=== PATIENT | female | born 1945 | race Caucasian/White ===

== ENCOUNTER → 2018-12-15 | Outpatient (CLI) | payer OTHER ==
[~2018-12-15] MED LIST: ACET325 PO; ALBU90OI INH; ASCO500 PO; ASPI81EC PO; B Complex #11 EACH PO; Bactrim Ds Tab1 EACH PO; CEFP200 PO; CEPH500 PO; CHOL10002 PO; COMBIVENT INH; CVS DISPOSABLE399 ML PR; CYCL10 PO; DEXGUASY; DIAZ2 PO; DOCU100 PO; ELIQUIS5 MG PO; FERR325 PO; HYDGUAL120 PO; HYDR1TAB94 PO; LISI5 PO; MOTRIN; Metoprolol Tart50 MG PO; PANT40 PO; PRED10 PO; SULTRISS PO; TOCO1000 PO; VITA25000 PO; Vitamin B Comple1 EA PO
== END | disposition home or self-care (01) ==
LOC: EDSTATUS 12-13 14:10 → LAB FUT 12-13 14:10 → LAB 16:53 → LAB SHORT 16:53
DX: R11.2 Nausea with vomiting, unspecified (principal)
CPT/HCPCS: 87493

== ENCOUNTER → 2019-05-04 | Outpatient (CLI) | payer OTHER | END | disposition home or self-care (01) | LOC: LAB SHORT 12:46 → LAB UCHC 12:46 | DX: N39.0 Urinary tract infection, site not specified (principal) | CPT/HCPCS: 87086 ==

== ENCOUNTER → 2019-11-16 | Outpatient (CLI) | payer OTHER ==
[2019-11-20 15:08] LABS: HPV 16 Negative (Negative); HPV 18 Negative (Negative); HPV OTHER HR TYPES Negative (Negative)
== END ==
LOC: LAB 15:45 → LAB SHORT 15:45
PROVIDERS: Radiology Therapeutic Radiology
DX: C53.9 Malignant neoplasm of cervix uteri, unspecified (principal)
CPT/HCPCS: 87624; 88175

== ENCOUNTER → 2020-02-08 | Outpatient (CLI) | payer OTHER ==
[~2020-02-08] MED LIST changes: +FERRETTS325 M1 PO; +FLUO10 PO; +Hydrocodone-Ap1 EA23; +PROZAC
[2020-02-08 14:50] LABS: Source, Urine Clean Catch
[2020-02-08 15:59] LABS: Bilirubin, Urine Neg (Neg); Blood, Urine 5+ (Neg); Glucose Qualitative, Urine Neg (Neg); Ketones, Urine 1+ (Neg); Leukocyte Esterase, Urine 3+ (Neg); Nitrite, Urine Pos (Neg); Protein, Urine 4+ (Neg); Urobilinogen, Urine 1+ (Normal)
[2020-02-08 16:18] LABS: Appearance, Urine Cloudy (Clear); Color, Urine Amber (P-Yellow); Red Blood Cells, Urine TNTC /hpf (0-2); White Blood Cells, Urine 25-50 /hpf (0-5)
[2020-02-08 16:19] LABS: Bacteria Few /hpf; Squamous Epithelial Cells Rare /hpf (Few)
== END | disposition home or self-care (01) ==
LOC: OLS 14:48 → LAB SHORT 14:48
PROVIDERS: Nurse Practitioner
DX: N39.0 Urinary tract infection, site not specified (principal)
CPT/HCPCS: 81001; 87077; 87086; 87186

== ENCOUNTER 2020-02-13 07:28 | Day surgery (SDC) | payer OTHER ==
[~2020-02-13] VITALS: Ht 160 cm; Wt 84.2 kg
[~2020-02-13 07:28] MED LIST changes: -FERRETTS325 M1 PO; -FLUO10 PO
[2020-02-13] MEDS ORDERED: FLUO10 PO (07:55)
[2020-02-13] MEDS ORDERED: FERRETTS325 M1 PO (07:56)
--- NOTE | 2020-02-13 08:22 | NUR ---
History, Chart, Medications and Allergies reviewed before start of procedure. Pre-Op teaching done. Pt verbalizes understanding.
--- NOTE | 2020-02-13 08:54 | NUR ---
02/13/20 0854 Deandre Roy PATIENT DETERMINED TO BE ASA APPROPRIATE FOR PROPOFOL SEDATION PRIOR TO START OF PROCEDURE BY Bite Block PlacedDentures removed and placed in cupPatient to ENDO 1History, Chart, Medications and Allergies reviewed before start of procedure.MONITOR INTACT WITH CONTINUOUS PULSE OXIMETRY AND INTERMITTENT BP.O2 VIA N/C INTACT THROUGHOUT SEDATION/PROCEDURE.
--- NOTE | 2020-02-13 09:45 | NUR ---
Discharge instructions reviewed with patient AND DAUGHTER SUMMER. . Patient verbalizes understanding. Copy given to patient to take home.
--- NOTE | 2020-02-13 10:00 | NUR ---
Discharged via wheelchair to private car for ride home. PT STATES ABD PAIN, STATES UNABLE TO LAY ON LEFT SIDE DUE TO PAIN. PER DAUGHTER PT HASN'T HAD HER USUAL MEDS THIS MORNING. ENCOURAGED PT TO GO HOME AND GET COMFORTABLE, DRINK WARM FLUIDS, TRY TO PASS AIR. PT TOLERATED SIPS OF WATER IN STEP DOWN. DRESS WITH DAUGHTER ASSISTANCE AND OUT OF DAY SURGERY VIA W/C.
== END 2020-02-13 09:50 | disposition home or self-care (01) ==
LOC: ORSCMMR 07:28 → ORD 08:30 → ORSCMMR 09:50
PROVIDERS: Internal Medicine Gastroenterology
PROC: 0DB98ZX Excision of Duodenum, Via Natural or Artificial Opening Endoscopic, Diagnostic (ICD-10-PCS; principal; 2020-02-13 08:30)
PROC: 0DB68ZX Excision of Stomach, Via Natural or Artificial Opening Endoscopic, Diagnostic (ICD-10-PCS; principal; 2020-02-13 08:30)
PROC: 0DBM8ZX Excision of Descending Colon, Via Natural or Artificial Opening Endoscopic, Diagnostic (ICD-10-PCS; principal; 2020-02-13 08:30)
DX: D50.0 Iron deficiency anemia secondary to blood loss (chronic) (principal); K21.9 Gastro-esophageal reflux disease without esophagitis; K64.8 Other hemorrhoids; D12.4 Benign neoplasm of descending colon; I48.0 Paroxysmal atrial fibrillation; J44.9 Chronic obstructive pulmonary disease, unspecified; Z79.01 Long term (current) use of anticoagulants; Z79.899 Other long term (current) drug therapy
CPT/HCPCS: J2704; J7120

== ENCOUNTER → 2020-02-20 | Outpatient (CLI) | payer OTHER ==
[~2020-02-20] MED LIST changes: +FERRETTS325 M1 PO; +FLUO10 PO
== END | disposition home or self-care (01) ==
LOC: LAB SHORT 19:02 → LAB 19:02
DX: R35.0 Frequency of micturition (principal)
CPT/HCPCS: 87086

== ENCOUNTER 2020-12-04 19:45 | Emergency (ER) | payer OTHER ==
[~2020-12-04] VITALS: Ht 160 cm; Wt 77.1 kg
[2020-12-04] MEDS ORDERED: PROC5 PO (20:34)
[2020-12-04] MEDS ORDERED: ALBU2.5V5 INH (20:35)
[2020-12-04] MEDS ORDERED: ELIQUIS2.5 MG PO (20:35)
[2020-12-04] MEDS ORDERED: NARCAN4 M1 (20:36)
[2020-12-04] MEDS ORDERED: SEROQUEL50 MG PO (20:37)
== END 2020-12-04 22:08 | disposition home or self-care (01) ==
LOC: ER 19:45
DX: S09.90XA Unspecified injury of head, initial encounter (principal); J44.9 Chronic obstructive pulmonary disease, unspecified; K21.9 Gastro-esophageal reflux disease without esophagitis; Z79.899 Other long term (current) drug therapy; Z79.01 Long term (current) use of anticoagulants; Z88.0 Allergy status to penicillin; Z88.5 Allergy status to narcotic agent; Z88.1 Allergy status to other antibiotic agents; Z87.891 Personal history of nicotine dependence; W10.9XXA Fall (on) (from) unspecified stairs and steps, initial encounter
CPT/HCPCS: 70450; 99283-25

== ENCOUNTER → 2020-12-20 | Outpatient (CLI) | payer OTHER ==
[~2020-12-20] MED LIST changes: +ALBU2.5V5 INH; +ELIQUIS2.5 MG PO; +NARCAN4 M1; +PROC5 PO; +SEROQUEL50 MG PO
== END | disposition home or self-care (01) ==
LOC: LAB SHORT 11:40
DX: R35.0 Frequency of micturition (principal)
CPT/HCPCS: 87086

== ENCOUNTER 2021-12-20 08:58 | Inpatient (IN) | payer OTHER ==
[~2021-12-20] VITALS: Ht 160 cm; Wt 74.6 kg
[2021-12-20 10:15] LABS: BASOPHILS ABSOLUTE AUTO 0.01 K/mm3 (0.00-0.23); BASOPHILS PERCENT AUTO 0 % (0-2); EOSINOPHILS ABSOLUTE AUTO 0.07 K/mm3 (0.00-0.68); EOSINOPHILS PERCENT AUTO 2 % (0-6); Hematocrit 28.5 % (33.0-51.0); Hemoglobin 8.8 g/dL (11.5-16.0); IMMATURE GRAN PERCENT AUTO 0 % (0-1); LYMPHOCYTES ABSOLUTE AUTO 0.79 K/mm3 (0.84-5.20); LYMPHOCYTES PERCENT AUTO 17 % (21-46); MONOCYTES ABSOLUTE AUTO 0.19 K/mm3 (0.16-1.47); MONOCYTES PERCENT AUTO 4 % (4-13); Mean Corpuscular HGB Conc 30.9 g/dL (31.5-36.5); Mean Corpuscular Volume 84 fL (80-100); Mean Platelet Volume 8.6 fL (9.1-12.4); NEUTROPHILS ABSOLUTE AUTO 3.56 K/mm3 (1.96-9.15); NEUTROPHILS PERCENT AUTO 77 % (41-73); Platelet Count 322 K/mm3 (150-400); RDW Coefficient Variation 17.8 % (11.7-14.2); RDW Standard Deviation 54.6 fL (35.1-46.3); Red Blood Cell Count 3.39 M/mm3 (3.80-5.20); White Blood Cell Count 4.62 K/mm3 (4.00-11.30)
[2021-12-20 10:29] LABS: International Normalized Ratio 1.09; Prothrombin Time Results 11.4 Sec (9.7-11.5)
[2021-12-20 10:38] LABS: Albumin, Blood 2.7 g/dL (3.4-5.0); Albumin/Globulin Ratio 0.7 (0.8-1.8); Bilirubin, Total 0.3 mg/dL (0.1-1.0); Bun/Creatinine Ratio 15.5 (12.0-20.0); Calcium, Blood 7.7 mg/dL (8.5-10.1); Creatinine, Blood 1.48 mg/dL (0.40-1.00); Globulin, Blood 4.1 g/dL (2.2-4.0); Potassium, Blood 4.2 mmol/L (3.5-5.5); Total Protein, Blood 6.8 g/dL (6.4-8.2)
[2021-12-20 10:42] LABS: Influenza A, PCR NEGATIVE (NEGATIVE); Influenza B, PCR NEGATIVE (NEGATIVE); Resp Syncytial Virus, PCR NEGATIVE (NEGATIVE); SARS-Cov-2 (COVID-19) PCR, MMC NEGATIVE (NEGATIVE)
[2021-12-20 12:18] LABS: Source, Urine Clean Catch
[2021-12-20 12:22] LABS: Bilirubin, Urine Neg (Neg); Blood, Urine 5+ (Neg); Glucose Qualitative, Urine Neg (Neg); Ketones, Urine Neg (Neg); Leukocyte Esterase, Urine 2+ (Neg); Nitrite, Urine Neg (Neg); Protein, Urine 2+ (Neg); Urobilinogen, Urine NORM (Normal)
[2021-12-20 12:31] LABS: Appearance, Urine Hazy (Clear); Color, Urine Yellow (P-Yellow)
[2021-12-20 12:33] LABS: Bacteria Few /hpf; Squamous Epithelial Cells Few /hpf (Few)
[2021-12-20] MEDS ORDERED: HYDACE10B PO (15:28)
--- NOTE | 2021-12-20 16:58 | NUR ---
PT FROM ED TO ROOM. ARRIVED AT 1505. A/O X4. FAMILY AT BEDSIDE. C/O GENERALIZED PAIN. ED MEDICATED BEFORE ARRIVAL. PAIN IS CHRONIC. NO TELE. H/R REGULAR IN 70'S. NO MURMUR NOTED. PULSES STRONG. LUNG SOUNDS ON RIGHT SIDE COARSE CRACKLES. LEFT LUNG CLEAR. BREATHING IS EASY AND UNLABORED. 3L VIA NASAL CANNULA. GENERALIZED WEAKNESS. NEEDS ASSISTANCE X2 TO COMMODE. PT STATED LAST BOWEL MOVEMENT WAS THIS AM. DAUGHTER AT BEDSIDE TO RELAY HEALTH HISTORY. DAUGHTER SUMMER IS PROXY. BED IN LOW POSITION. CALL LIGHT IN REACH AND CALLS APPROPRIATLY. PT GIVEN WATER AND PUDDING/APPLESAUCE.
--- NOTE | 2021-12-20 18:23 | NUR ---
PT PLEASANT AND COOPERATIVE. A/O X4. C/O GENERALIZED PAIN. NO TELE. H/R REG IN 70'S. NO MURMURS NOTED. RT LUNG HAS COARSE CRACKLES THROUGHOUT. LT LUNG CLR. BREATHING IS EASY AND UNLBAORED. 3L VIA NASAL CANNULA. PT HAD A LOOSE BOWEL MOVEMENT. USES BSC WITH 2+ ASSISTANCE. GENERALIZED WEAKNESS. PT STATES SHE USED A WHEELCHAIR AND WALKER AT HOME TO AMBULATE. FAMILY AT BEDSIDE. BED IN LOW POSITION, CALL LIGHT IN REACH, CALLS APPROPRIATLY.
--- NOTE | 2021-12-21 04:30 | NUR ---
0340: PATIENT'S VITALS WERE TAKEN; BP WAS 189/100. RN WAS NOTIFIED AND 20 MG OF HYDRALAZINE WAS GIVEN D/T SYSTOLIC PARAMETERS. 0415: PT'S BP WAS RECHECKED @ 155/99. PT IS RESTING AND WE'LL CONTINUE TO MONITOR.
[2021-12-21 04:34] LABS: Hematocrit 21.8 % (33.0-51.0); Mean Corpuscular HGB Conc 32.1 g/dL (31.5-36.5); Mean Corpuscular Volume 81 fL (80-100); Mean Platelet Volume 8.8 fL (9.1-12.4); Platelet Count 278 K/mm3 (150-400); RDW Coefficient Variation 17.9 % (11.7-14.2); Red Blood Cell Count 2.69 M/mm3 (3.80-5.20); White Blood Cell Count 15.24 K/mm3 (4.00-11.30)
--- NOTE | 2021-12-21 04:51 | NUR ---
PT HAD AM LAB DRAWS DONE AND HAD A HEMOGLOBIN OF 7.0 DOWN FROM 8.8. THE MD WAS NOTIFIED AND INFOMRED THE RN THAT WE'D CONTINUE TO WATCH IT. WE'LL CONTINUE TO MONITOR.
[2021-12-21 04:54] LABS: Albumin, Blood 2.2 g/dL (3.4-5.0); Anion Gap 5 mmol/L (6-16); Blood Urea Nitrogen 19 mg/dL (8-24); Bun/Creatinine Ratio 15.6 (12.0-20.0); CO2, Blood 25 mmol/L (21-32); Calcium, Blood 7.4 mg/dL (8.5-10.1); Chloride, Blood 107 mmol/L (98-108); Creatinine, Blood 1.22 mg/dL (0.40-1.00); Glomerular Filtration Rate 43 (60-); Glucose, Blood 174 mg/dL (70-99); Potassium, Blood 3.9 mmol/L (3.5-5.5); Sodium, Blood 137 mmol/L (136-145)
--- NOTE | 2021-12-21 05:31 | NUR ---
SHIFT SUMMARY: PT IS A/OX4. O2: 3L. HOME MEDS WERE RECONCILED; A FEW MEDS (SEROQUEL & FLEXERIL) WERE CHANGED FROM DAILY TO BEDTIME D/T PT'S HOME ROUTINE. PT HAS PRN 5 MG OF OXY Q6, LAST GIVEN @ 2215. PT IS A 1-2 PA FWW TO [facility]. PT HAD DAUGHTER IN ROOM T/O NOC SHIFT. CALL LIGHT IS WITHIN REACH AND WE'LL CONTINUE TO MONITOR.
--- NOTE | 2021-12-21 18:43 | NUR ---
SHIFT SUMMARY PATIENT A&OX4. 1PA TO BS. C/O PAIN, MEDICATED PER NOV X2. HX COPD. ON 3L O2 VIA NC. RECEIVING IV ANTIBIOTICS AND STERIODS. NO SIGNIFICANT EVENTS T/O SHIFT. WILL CONTINUE TO MONITOR.
[2021-12-22 04:34] LABS: Hematocrit 24.4 % (33.0-51.0); Hemoglobin 7.7 g/dL (11.5-16.0); Mean Corpuscular HGB 25.8 pg (26.0-34.0); Mean Corpuscular HGB Conc 31.6 g/dL (31.5-36.5); Mean Corpuscular Volume 82 fL (80-100); Mean Platelet Volume 8.9 fL (9.1-12.4); Platelet Count 316 K/mm3 (150-400); RDW Coefficient Variation 18.1 % (11.7-14.2); RDW Standard Deviation 53.1 fL (35.1-46.3); Red Blood Cell Count 2.99 M/mm3 (3.80-5.20); White Blood Cell Count 16.84 K/mm3 (4.00-11.30)
[2021-12-22 05:06] LABS: Albumin, Blood 2.5 g/dL (3.4-5.0); Anion Gap 8 mmol/L (6-16); Blood Urea Nitrogen 28 mg/dL (8-24); CO2, Blood 24 mmol/L (21-32); Calcium, Blood 8.4 mg/dL (8.5-10.1); Chloride, Blood 104 mmol/L (98-108); Creatinine, Blood 1.12 mg/dL (0.40-1.00); Ferritin, Serum 66 ng/mL (8-252); Glomerular Filtration Rate 47 (60-); Glucose, Blood 156 mg/dL (70-99); Iron Serum 16 ug/dL (50-170); Percent Saturation 4.7 % (15.0-50.0); Phosphorus, Blood 2.6 mg/dL (2.5-4.9); Potassium, Blood 4.1 mmol/L (3.5-5.5); Sodium, Blood 136 mmol/L (136-145); Total Iron Binding Capacity 339 ug/dL (250-450)
--- NOTE | 2021-12-22 06:48 | NUR ---
SHIFT SUMMARY PATIENT ALERT AND ORIENTED. MEDICATED PER EMAR FOR PAIN. NO ACUTE ISSUES NOTED OVERNIGHT. CALL LIGHT WITHIN REACH. REPORT GIVEN TO ONCOMING RN.
--- NOTE | 2021-12-22 18:37 | NUR ---
SHIFT SUMMARY PT ADMITTED WITH PNEUMONIA AND SEEMS TO BE IMPROVING. GOAL TO WEAN PT OFF OXYGEN PRIOR TO DISCHARGE. WEANED PT DOWN TO 2 LITERS THIS SHIFT BUT SHE BECAME SHORT OF BREATH WITH AMBULATION AND WAS BUMPED BACK UP TO 3 LITERS. WILL CONTINUE TO TRY TO WEAN HER DOWN ON OXYGEN. LUNGS ARE COARSE IN THE BASES AND COUGH IN NON-PRODUCTIVE. CHRONIC BACK PAIN TREATED PER EMR. VSS. WILL REPORT TO NOC RN.
--- NOTE | 2021-12-23 04:18 | NUR ---
PT IS A/OX4. SHE IS A 1 PA TO THE BR. O2: 3L. RN HAS TRIED TO TITRATE O2, BUT SHE IS VERY SOB AFTER AMBULATION AND REQUIRES THE 3L TO STAY >90%. LUNGS HAVE FAINT CRACKLES IN THE BASES. SHE DID GET PRN 5MG OXY @ 2150 FOR CHRONIC PAIN. CALL LIGHT IS WITHIN REACH.
[2021-12-23] MEDS ORDERED: PRED20 PO (11:35)
[2021-12-23] MEDS ORDERED: DOXY100 PO (11:36)
--- NOTE | 2021-12-23 17:42 | NUR ---
DISCHARGE PT A&O X4 & DAUGHTERS PRESENT @ TIME OF D/C. PROVIDED W/ WRITTEN AND VERBAL DIRECTION. PT VERBALIZED UNDERSTANDING OF D/C PLAN. IV REMOVED, O2 EVAL COMPLETE AND OXYGEN TANK DROPPED OFF BY JEWELS. PT ESCORTED OUT VIA WC BY KYLE TOBIAS, PERSONAL BELONGINGS IN TOW. DAUGHTER TO PROVIDE TRANSPORT.
== END 2021-12-23 17:45 | disposition home or self-care (01) | DRG 193 ==
LOC: ER 08:58 → MEDS 12:04
PROVIDERS: Physician Assistant; ADMIT Internal Medicine
DX: J18.9 Pneumonia, unspecified organism (principal); J96.01 Acute respiratory failure with hypoxia; J44.1 Chronic obstructive pulmonary disease with (acute) exacerbation; J44.0 Chronic obstructive pulmonary disease with (acute) lower respiratory infection; E87.2 Acidosis; G93.49 Other encephalopathy; N18.30 Chronic kidney disease, stage 3 unspecified; Z88.0 Allergy status to penicillin; Z88.8 Allergy status to other drugs, medicaments and biological substances; Z88.1 Allergy status to other antibiotic agents; F32.A Depression, unspecified; F41.9 Anxiety disorder, unspecified; I10 Essential (primary) hypertension; K21.9 Gastro-esophageal reflux disease without esophagitis; Z98.890 Other specified postprocedural states; Z66 Do not resuscitate; Z79.899 Other long term (current) drug therapy
CPT/HCPCS: 0241U; 36415; 71045; 74176; 80053; 80069; 81001; 82728; 83540; 83550; 83605; 84145; 85025; 85027; 85610; 85730; 87040; 87086; 93005; 93010; 94640; 94664; 94760; 94761; 96374; 96375; 99285-25; A9270; J0696; J1170; J2405; J2930; J7030; J7120; J7512; P9612

== ENCOUNTER 2022-06-14 12:13 | Emergency (ER) | payer OTHER ==
[~2022-06-14] VITALS: Ht 160 cm; Wt 72.6 kg
[~2022-06-14 12:13] MED LIST changes: +DOXY100 PO; +HYDACE10B PO; +PRED20 PO
[2022-06-14 15:01] LABS: BASOPHILS ABSOLUTE AUTO 0.02 K/mm3 (0.00-0.23); BASOPHILS PERCENT AUTO 0 % (0-2); EOSINOPHILS ABSOLUTE AUTO 0.04 K/mm3 (0.00-0.68); EOSINOPHILS PERCENT AUTO 0 % (0-6); Hematocrit 23.3 % (33.0-51.0); Hemoglobin 7.4 g/dL (11.5-16.0); IMMATURE GRAN ABSOLUTE AUTO 0.13 K/mm3 (0.00-0.10); IMMATURE GRAN PERCENT AUTO 1 % (0-1); LYMPHOCYTES ABSOLUTE AUTO 1.32 K/mm3 (0.84-5.20); LYMPHOCYTES PERCENT AUTO 8 % (21-46); MONOCYTES ABSOLUTE AUTO 0.54 K/mm3 (0.16-1.47); MONOCYTES PERCENT AUTO 3 % (4-13); Mean Corpuscular HGB 24.3 pg (26.0-34.0); Mean Corpuscular HGB Conc 31.8 g/dL (31.5-36.5); Mean Corpuscular Volume 77 fL (80-100); Mean Platelet Volume 8.2 fL (9.1-12.4); NEUTROPHILS ABSOLUTE AUTO 15.31 K/mm3 (1.96-9.15); NEUTROPHILS PERCENT AUTO 88 % (41-73); Platelet Count 359 K/mm3 (150-400); RDW Coefficient Variation 17.3 % (11.7-14.2); RDW Standard Deviation 48.2 fL (35.1-46.3); Red Blood Cell Count 3.04 M/mm3 (3.80-5.20); White Blood Cell Count 17.36 K/mm3 (4.00-11.30)
[2022-06-14 15:10] LABS: Influenza A, PCR NEGATIVE (NEGATIVE); Influenza B, PCR NEGATIVE (NEGATIVE); Resp Syncytial Virus, PCR NEGATIVE (NEGATIVE)
[2022-06-14 15:17] LABS: Albumin, Blood 2.5 g/dL (3.4-5.0); Albumin/Globulin Ratio 0.6 (0.8-1.8); Bilirubin, Total 0.6 mg/dL (0.1-1.0); Bun/Creatinine Ratio 20.2 (12.0-20.0); Calcium, Blood 8.4 mg/dL (8.5-10.1); Creatinine, Blood 1.14 mg/dL (0.40-1.00); Globulin, Blood 3.9 g/dL (2.2-4.0); Potassium, Blood 3.7 mmol/L (3.5-5.5); Total Protein, Blood 6.4 g/dL (6.4-8.2)
[2022-06-14 16:37] LABS: SARS-Cov-2 (COVID-19) PCR, MMC POSITIVE (NEGATIVE)
== END 2022-06-14 18:29 | disposition home or self-care (01) ==
LOC: ER 12:13
PROVIDERS: Emergency Medicine
DX: U07.1 COVID-19 (principal); J44.9 Chronic obstructive pulmonary disease, unspecified; N18.30 Chronic kidney disease, stage 3 unspecified; Z88.0 Allergy status to penicillin; Z88.5 Allergy status to narcotic agent; Z88.1 Allergy status to other antibiotic agents; Z79.52 Long term (current) use of systemic steroids; Z79.899 Other long term (current) drug therapy; Z87.891 Personal history of nicotine dependence
CPT/HCPCS: 0241U; 71046; 80053; 83880; 85025; 93005; 93010; 99285-25; M0222

== ENCOUNTER 2023-04-28 14:48 | Emergency (ER) | payer OTHER ==
[~2023-04-28] VITALS: Ht 162.6 cm; Wt 72.6 kg
[2023-04-28 15:53] LABS: Hematocrit 27.2 % (33.0-51.0); Hemoglobin 7.2 g/dL (11.5-16.0); Mean Corpuscular HGB 21.4 pg (26.0-34.0); Mean Corpuscular HGB Conc 26.5 g/dL (31.5-36.5); Mean Corpuscular Volume 81 fL (80-100); Mean Platelet Volume 9.8 fL (9.1-12.4); NRBC ABSOLUTE 0.04 K/mm3 (0.00-0.02); NRBC Auto 0.2 /100 WBC (0.0-0.2); Platelet Count 556 K/mm3 (150-400); RDW Coefficient Variation 24.4 % (11.7-14.2); RDW Standard Deviation 70.8 fL (35.1-46.3); Red Blood Cell Count 3.36 M/mm3 (3.80-5.20); White Blood Cell Count 25.87 K/mm3 (4.00-11.30)
[2023-04-28 16:03] LABS: PCO2 Venous 27.4 mmHg (38-42); PO2 Venous 80.8 mmHg (38-42)
[2023-04-28 16:04] LABS: Base Excess Venous -31.3 mmol/L; pH Blood Venous <6.80 (7.34-7.37)
[2023-04-28 16:11] LABS: International Normalized Ratio 1.82; Prothrombin Time Results 18.5 Sec (9.7-11.5)
[2023-04-28 16:29] LABS: BAND PERCENT MAN 4 % (0-8); BASOPHILS PERCENT MAN 0 % (0-2); EOSINOPHILS ABSOLUTE MAN 0.25 K/mm3 (0.00-0.68); EOSINOPHILS PERCENT MAN 1 % (0-6); LYMPHOCYTES ABSOLUTE MAN 4.13 K/mm3 (0.84-5.20); LYMPHOCYTES PERCENT MAN 16 % (21-46); METAMYELOCYTE ABSOLUTE MAN 0.25 K/mm3 (0.00-0.00); METAMYELOCYTE PERCENT MAN 1 % (0-0); MONOCYTES ABSOLUTE MAN 1.29 K/mm3 (0.16-1.47); MONOCYTES PERCENT MAN 5 % (4-13); MYELOCYTE ABSOLUTE MAN 0.77 K/mm3 (0.00-0.00); MYELOCYTE PERCENT MAN 3 % (0-0); NEUTROPHILS ABSOLUTE MAN 19.14 K/mm3 (1.96-9.15); SEG NEUTROPHILS PERCENT MAN 70 % (41-73); TOTAL CELLS COUNTED 100
[2023-04-28 16:30] LABS: Magnesium, Blood 2.7 mg/dL (1.6-2.4)
[2023-04-28 16:31] LABS: Albumin/Globulin Ratio 0.5 (0.8-1.8); Bilirubin, Total 6.3 mg/dL (0.1-1.0); Bun/Creatinine Ratio 14.8 (12.0-20.0); Calcium, Blood 8.6 mg/dL (8.5-10.1); Creatinine, Blood 2.1 mg/dL (0.40-1.00); Globulin, Blood 4.3 g/dL (2.2-4.0); Total Protein, Blood 6.3 g/dL (6.4-8.2)
[2023-04-28 17:00] VITALS: BP 61/46
--- NOTE | 2023-04-28 17:07 | NUR ---
"Spiritual Care | Code - Family Support Pt. coded upon return to ED. Grieving family gathered in Triage 3. Comfort and prayer is given for the family. Juan Carlos Miller informed family of Pts. passing. Called [facility] to continue spiritual care. Family verbalized gratitude for the spiritual care support."
[2023-04-28 17:16] LABS: Base Excess Venous -28.3 mmol/L; Bicarbonate Venous 5.4 mmol/L (24.0-30.0); PCO2 Venous 22.3 mmHg (38-42); pH Blood Venous 6.91 (7.34-7.37)
--- NOTE | 2023-04-28 17:40 | NUR ---
Pt coded in the ED, and after multiple rounds of CPR, no pulse found. After calling the code, the pt's heart began beating, and agonal breathing noted. Pt's eyes remained fixed and dilated. No purposeful movement. Pt's son was made aware of the change, and requested no further interventions be performed. He requested pt not be placed on a ventilator, and request comfort care only be given. Pt was given medication for air hunger. No change in breathing, no purposeful breaths taken. Pt at 1716. Multiple family members in to see pt, and they chose [facility]. Condolences given, and [facility] [employer] Head Sabin remained with family.
--- NOTE | 2023-04-28 18:11 | NUR ---
Call back- Multiple family members were present in triage room. Pt's daughter Lisa and son Jerry were present along with multiple family members. After pt passed, family members brought into say goodbye. Space provided for all to grieve. A prayer was extended to those present. Family all appear to be greiving appropriately. Family choose [facility] for [facility] option. [place] [facility] life planned for this Wednesday.
== END 2023-04-28 18:41 ==
LOC: ER 14:48
PROVIDERS: Emergency Medicine
DX: E87.20 Acidosis, unspecified (principal); I46.8 Cardiac arrest due to other underlying condition; K72.90 Hepatic failure, unspecified without coma; J44.9 Chronic obstructive pulmonary disease, unspecified; N18.30 Chronic kidney disease, stage 3 unspecified; I48.0 Paroxysmal atrial fibrillation; Z88.1 Allergy status to other antibiotic agents; Z88.0 Allergy status to penicillin; Z88.5 Allergy status to narcotic agent; Z79.899 Other long term (current) drug therapy; Z79.01 Long term (current) use of anticoagulants; Z87.891 Personal history of nicotine dependence; Z85.41 Personal history of malignant neoplasm of cervix uteri
CPT/HCPCS: 31720; 36415; 71045; 74176; 80053; 82140; 82803; 83605; 83690; 83735; 83880; 84484; 85025; 85610; 86850; 86900; 86901; 87040; 92950; 93005; 93010; 96365-59; 96375-59; 96376-59; 99291-25; J0153; J0282; J1170; J7060; J7070